=== PATIENT | female | born 1980 | race Asian ===

== ENCOUNTER 2017-07-03 05:30 | Day surgery (SDC) | payer BC ==
[~2017-07-03] VITALS: Ht 170.2 cm; Wt 99.8 kg
[2017-07-03] MEDS ORDERED: LR 1,000 ML IV SCH (09:10)
[2017-07-03] MEDS ORDERED: ONDANSETRON HCL 4 MG/2 ML VIAL IVP PRN (09:15)
[2017-07-03] MEDS ORDERED: TERBUTALINE SULFATE 1 MG/ML VIAL SUBCUT ONE (09:15)
[2017-07-03] MEDS ORDERED: NACL 0.9% 1,000 ML IV SCH (09:15)
[2017-07-03] MEDS ORDERED: MORPHINE SULFATE 10 MG/ML VIAL IM PRN (09:15)
[2017-07-03 09:20] VITALS: BP_SYST 129
[2017-07-03] MEDS ORDERED: MIDAZOLAM HCL 5 MG/ML VIAL (VERSED) IV ONE (09:20)
[2017-07-03] MEDS ORDERED: CEFAZOLIN 2 GM IVPB PREMIX 50 ML IV ONE (09:20)
[2017-07-03] MEDS ORDERED: BUPIVACAINE /DEX PF 0.75% SPINAL 2 ML AMP INJ ONE (09:20)
[2017-07-03] MEDS ORDERED: NS IRRIG SOLN 1000 ML IR ONE (09:20)
[2017-07-03] MEDS ORDERED: LR 1,000 ML IV.SOLN IV ONE (09:20)
[2017-07-03] MEDS ORDERED: ceFAZolin SODIUM 1 GM in D5W 50 ML IV SCH (14:00)
[2017-07-03] MEDS ORDERED: METHYLDOPA 250 MG TABLET (ALDOMET) PO ONE (14:45)
== END 2017-07-03 20:00 | disposition home or self-care (01) ==
LOC: SDS 05:30 → SMU 05:30 → SPU 10:15 → SDS 20:00
PROVIDERS: ATTEND Specialist
DX: O34.32 Maternal care for cervical incompetence, second trimester (principal); O10.912 Unspecified pre-existing hypertension complicating pregnancy, second trimester; O99.212 Obesity complicating pregnancy, second trimester; E66.9 Obesity, unspecified; Z3A.15 15 weeks gestation of pregnancy
CPT/HCPCS: 59320; 87070 ×2; 94760; J0690 ×2; J2250; J3490; J7060; J7120

== ENCOUNTER 2020-07-27 06:00 | Day surgery (SDC) | payer BC ==
[2020-07-25 09:48] LABS: BASOPHILS # (AUTO) 0.1 K/uL (0.0-0.2); BASOPHILS % (AUTO) 0.4 % (0.0-2.0); EOSINOPHILS # (AUTO) 0.2 K/uL (0.0-0.4); EOSINOPHILS % (AUTO) 1.1 % (0.0-4.0); HEMATOCRIT 35.9 % (36-48); HEMOGLOBIN 11.7 g/dL (12.0-16.0); LYMPHOCYTES # (AUTO) 1.6 K/uL (1.0-5.5); MEAN CORPUSCULAR HEMOGLOBIN 26 pg (27-31); MEAN CORPUSCULAR HGB CONC 33 % (32-36); MEAN CORPUSCULAR VOLUME 81 fL (79.0-98.0); MONOCYTES % (AUTO) 6.6 % (1.7-9.3); NEUTROPHILS # (AUTO) 11.9 K/uL (1.8-7.7); NEUTROPHILS % (AUTO) 80.9 % (40.0-70.0); PLATELET COUNT (AUTO) 329 K/uL (130-430); RED BLOOD CELL COUNT(AUTO) 4.45 MIL/uL (4.2-6.2); RED CELL DISTRIBUTION WIDTH 16.3 % (9.0-15.0); WHITE BLOOD COUNT (AUTO) 14.7 K/uL (4.8-10.8)
[2020-07-25 09:58] LABS: BILIRUBIN,URINE NEGATIVE (NEGATIVE); BLOOD, URINE NEGATIVE (NEGATIVE); CLARITY/URINE CLEAR (CLEAR); COLOR,URINE YELLOW (YELLOW); GLUCOSE,URINE 1+ (NEGATIVE); KETONES,URINE NEGATIVE (NEGATIVE); LEUKOCYTE ESTERASE ,URINE 1+ (NEGATIVE); NITRITE, URINE NEGATIVE (NEGATIVE); PROTEIN URINE NEGATIVE (NEGATIVE); UROBILINOGEN,URINE 0.2 (0.2-1.0)
[2020-07-25 10:01] LABS: HCG,QUAL RESULT POSITIVE (NEGATIVE)
[2020-07-25 10:30] LABS: BACTERIA,URINE FEW /HPF (None Seen); MUCUS,URINE 1+ /LPF (None Seen); RBC,URINE 0-3 /HPF (0-3)
[~2020-07-27] VITALS: Ht 170.2 cm; Wt 105.2 kg
[2020-07-27] MEDS ORDERED: CEFAZOLIN SOD 1 GM in D5W 50 ML IV ONE (07:00)
[2020-07-27] MEDS ORDERED: NS IRRIG SOLN 1000 ML IR ONE (07:47)
[2020-07-27] MEDS ORDERED: BUPIVACAINE /PF 0.75% 10 ML VIAL INJ ONE (07:47)
[2020-07-27] MEDS ORDERED: LR 1,000 ML IV.SOLN IV ONE (07:47)
[2020-07-27] MEDS ORDERED: ONDANSETRON HCL 4 MG/2 ML VIAL IVP PRN (08:30)
[2020-07-27] MEDS ORDERED: ACETAMINOPHEN 500 MG TABLET PO PRN (08:30)
[2020-07-27 08:45] VITALS: BP_SYST 120
[2020-07-27] MEDS ORDERED: TERBUTALINE SULFATE 1 MG/ML VIAL ONE (16:38)
[2020-07-27] MEDS ORDERED: TERBUTALINE SULFATE 1 MG/ML VIAL SUBCUT ONE (16:45)
== END 2020-07-27 18:40 | disposition home or self-care (01) ==
LOC: SMU 06:00 → SDS 06:00 → SPU 12:22 → SDS 18:40
PROVIDERS: ATTEND Specialist
DX: O34.32 Maternal care for cervical incompetence, second trimester (principal); O16.2 Unspecified maternal hypertension, second trimester; D64.9 Anemia, unspecified; O99.012 Anemia complicating pregnancy, second trimester; E66.01 Morbid (severe) obesity due to excess calories; O99.212 Obesity complicating pregnancy, second trimester; Z20.828 Contact with and (suspected) exposure to other viral communicable diseases; Z3A.18 18 weeks gestation of pregnancy; Z79.899 Other long term (current) drug therapy
CPT/HCPCS: 36415; 59320; 81000; 84703; 85025; 86886; 86900; 86901; 87070 ×2; 87075; J0690; J3105; J3490; J7060; J7120; U0003